=== PATIENT | female | born 1930 | race Caucasian/White ===

== ENCOUNTER 2017-06-02 05:03 | Inpatient (IN) ==
--- NOTE | 2017-06-02 05:31 | Emergency Department Note ---
Disposition Clinical Impression: Abdominal pain Qualifiers: Abdominal location: right upper quadrant Qualified Code(s): R10.11 - Right upper quadrant pain Disposition: Still a Patient Condition: Undetermined General Adult HPI - General Chief complaint: ED Shortness of Breath/Dyspnea Stated complaint: EMILIANO/weakness Time Seen by Provider: 06/02/17 05:22 Source: patient Mode of arrival: ambulatory Limitations: no limitations Nursing Notes Reviewed: Yes Vital Signs Reviewed: Yes - History of Present Illness HPI Narrative: 86-year-old female with a history of A. fib, AICD presents emergency department for 4 days of right upper quadrant pain. History obtained from daughter: She states patient has been complaining of right upper quadrant pain for the last 4 days. She has not noticed any fever, chills, shortness of breath, dyspnea patient has not complained of chest pain. There has been no vomiting or diarrhea. Daughter states patient has to come to the emergency department for the right upper quadrant pain. She is typically walking around the house without any difficulty, independent. Daughter states over last 2 days patient has noted to become weaker and weaker. The daughter states the patient is exactly how she has a home with the exception of she is weaker and she has the pain shooting across her abdomen. Difficult to interview patient. She answers with one word questions. I asked her what her to the emergency room tonight to daughter daughter and asked her why she had brought her. Patient does state that her right upper quadrant has hurt for about a week, and that she just "feels weak". She denies difficulty breathing, shortness of breath. During the interview patient clenched and pain is stated the pain had went across her abdomen rigidity A side towards the middle as patient to describe the pain if it was sharp, dull, etc. patient stated she would not necessarily call was sharp but she was unable to describe what it felt like. He appears to be intermittent. Patient is on Coumadin. Last INR check was on 05/31 result 2.4 Onset (ago): day(s) Location: abdomen Radiation: non-radiation Pain Scale: 0 Improves with: nothing Worsens with: nothing - Related Data Home Medications Medication Instructions Recorded Confirmed Furosemide [Lasix] 20 mg PO DAILY 01/28/17 01/28/17 Metoprolol [Lopressor] 25 mg PO BID 01/28/17 01/28/17 Potassium Chloride [Klor-Con 10] 10 meq PO DAILY 01/28/17 01/28/17 Warfarin [Coumadin] 2 mg PO HS 01/28/17 01/28/17 Allergies Allergy/AdvReac Type Severity Reaction Status Date / Time Sulfa (Sulfonamide Allergy Verified 10/26/14 23:21 Antibiotics) Review of Systems: Review of systems obtained culmination of patient and daughter. All systems ED: reviewed and negative except as stated. Review of Systems: As Per HPI Constitutional: Reports: weakness. Denies: fever, chills, weight change, night sweats ENT ED: Denies: throat pain, hearing loss, epistaxis, congestion, dysphagia Cardiovascular: Denies: chest pain, palpitations, dyspnea on exertion, edema, syncope Respiratory: Reports: as per HPI, cough (Nonpersistent and dry). Denies: dyspnea, wheezes Gastrointestinal: Reports: as per HPI, abdominal pain. Denies: nausea, vomiting , diarrhea, constipation, hematemesis, melena, hematochezia Genitourinary: Reports: as per HPI. Denies: urgency, dysuria, frequency, hematuria, discharge Musculoskeletal: Denies: back pain, neck pain Neurological: Denies: weakness, numbness, paresthesias Hematological/Lymphatic: Reports: easy bleeding, easy bruising, other (Due to Coumadin use) Past Medical History - Past Medical History Attestation: Yes The following information was validated with the patient. Source: old records reviewed, obtained from family Medical history: Reports: arthritis, atrial fibrillation Surgical history: Reports: appendectomy, cholecystectomy, hysterectomy - Social History Smoking Status: Never smoker Smokeless Tobacco Status: No Alcohol use: Reports: none Drug use: Reports: unknown Physical Exam - General Limitations: no limitations General appearance: alert - Head Head exam: atraumatic, normocephalic, normal inspection - Eye Eye exam: Present: conjunctival injection - ENT ENT exam: mucous membranes dry - Neck Neck exam: Present: normal inspection, full ROM, trachea midline - Chest Chest inspection: Present: normal inspection, symmetric chest wall rise - Respiratory Respiratory exam: Present: normal lung sounds bilaterally, prolonged expiratory phase - Cardiovascular Cardiovascular exam: Present: regular rate, normal rhythm, normal heart sounds - Abdominal Exam Abdominal exam: Present: soft, tenderness, guarding, normal bowel sounds. Absent: Non-Tender, distention, rebound, rigidity Abdominal tenderness: Present: RUQ, severe - Neurological Exam Neurological exam: Present: alert - Skin Skin exam: Present: warm, dry, intact, normal color Course Course Narrative: 86-year-old female with a history of A. fib, AICD, ovarian cancer, cholecystectomy, appendectomy presents emergency department for 4 days of right upper quadrant pain. History obtained from daughter: She states patient has been complaining of right upper quadrant pain for the last 4 days. She has not noticed any fever, chills, shortness of breath, dyspnea patient has not complained of chest pain. There has been no vomiting or diarrhea. Daughter states patient has to come to the emergency department for the right upper quadrant pain. She is typically walking around the house without any difficulty, independent. Daughter states over last 2 days patient has noted to become weaker and weaker. The daughter states the patient is exactly how she has a home with the exception of she is weaker and she has the pain shooting across her abdomen. Difficult to interview patient. She answers with one word questions. I asked her what her to the emergency room tonight to daughter daughter and asked her why she had brought her. Patient does state that her right upper quadrant has hurt for about a week, and that she just "feels weak". She denies difficulty breathing, shortness of breath. During the interview patient clenched and pain is stated the pain had went across her abdomen rigidity A side towards the middle as patient to describe the pain if it was sharp, dull, etc. patient stated she would not necessarily call was sharp but she was unable to describe what it felt like. He appears to be intermittent. Patient is on Coumadin. Last INR check was on 05/31 result 2.4; Well-nourished, dry, female. Her skin looks sallow with almost a light jaundiced appearance. Her sclera is injected, glassy, mucous membranes are dry. Patient noted with tachypnea respirations parceling 25-28 a minute. Patient is alert and oriented 3, though it appears that time she is unable to follow the conversation and can only answer direct questions such as name and birthday, where our usual, questions like that, but she is not able to answer descriptives questions, she is not able to answer why she came to the emergency room tonight, she is unable to explain her thought process. Respirations are quicken shallow lungs are clear; heart rate irregular with a controlled rate; abdomen is round and protuberant, bowel sounds times all 4 quadrants, exquisite tenderness to right upper quadrant below the ribs. Patient is guarding and unable to tolerate full assessment for liver border; last bowel movement was yesterday and normal per patient (daughter unable to say if the bowel movement was formed but she did say patient had a bowel movement yesterday and that she has not been going extra or less than normal) After examination alert to daughter for clarification. Daughter states patient is at her baseline mentally, she is at her baseline with the roundness of her abdomen, color of her skin. Patient states that she does not see anything different than what her mother is typically like other than she is more weak and has the right upper quadrant pain. We will perform a cardiac workup as well as an abdominal workup. Concern at this time is for GI bleeding due to the Coumadin use, acute liver disease, pancreatitis, Vital Signs Temperature 99.8 F H 06/02/17 05:06 Pulse Rate 89 06/02/17 05:06 Respiratory Rate 22 06/02/17 05:06 Blood Pressure 146/55 06/02/17 05:06 O2 Sat by Pulse Oximetry 88 06/02/17 05:06 Temperature 99.8 F H 06/02/17 05:06 Pulse Rate 89 06/02/17 05:06 Respiratory Rate 22 06/02/17 05:06 Blood Pressure 146/55 06/02/17 05:06 O2 Sat by Pulse Oximetry 88 06/02/17 05:06 Oxygen Delivery Oxygen Delivery Room Air S.B.A.R. - S.B.A.R. Situation: Demographics, MOA Background: Presenting Complaint, Relevant PMH, Meds, & Allergies Assessment: Vital Signs, Course and respsone to treatment, Exam Concerns, Patient/Family Expectation, Pertinant Lab Results, Outstanding Labs Recommendation: Barrier(s) to disposition, Recommendation based on pending studies, treatments, or consults S.B.A.R. Report Given to: Gurinder Mcfadden CNP S.B.A.RShukri Repor Time: 06:10
[2017-06-02] MEDS ORDERED: 0.9 % Sodium Chloride 500 ML IVC ONE (05:45)
[2017-06-02] MEDS ORDERED: Ondansetron ODT 4 MG TAB.RAPDIS SL ONE (05:54)
[2017-06-02 06:05] LABS: Basophils # 0.1 K/mcL (0.0-0.2); Basophils % 0.4 %; Eosinophils # 0.1 K/mcL (0.0-0.6); Eosinophils % 0.5 %; Hematocrit 37.1 % (35.3-44.9); Hemoglobin 11.9 g/dL (11.5-15.4); Immature Granulocytes % 0.5 % (0-4); Mean Corpuscular HGB Conc 32.1 g/dL (31.6-35.5); Mean Corpuscular Hemoglobin 31.6 pg (28.0-33.3); Mean Corpuscular Volume 98.7 fL (83.0-100.0); Mean Platelet Volume 9.6 fL (9.4-12.4); Monocytes # 1.2 K/mcL (0.0-1.3); Monocytes % 8.5 %; Neutrophils # 11.1 K/mcL (1.6-8.9); Platelet Count 300 K/mcL (140-400); Red Blood Count 3.76 M/mcL (3.82-4.97); Red Cell Distribution Width 12.7 % (11.5-14.5); Segmented Neutrophils % 76.1 %
[2017-06-02 06:11] LABS: INR 2.6; Prothrombin Time 28.8 Seconds (9.4-12.1)
[2017-06-02 06:13] LABS: Activated Partial Thrombo Time 40.2 Seconds (26.0-36.0)
[2017-06-02 06:25] LABS: Alanine Aminotransferase 16 Units/L (7-52); Albumin 3.6 g/dL (3.5-5.7); Albumin/Globulin Ratio 0.9 (1.1-2.2); Alkaline Phosphatase 89 Units/L (34-104); Aspartate Amino Transferase 32 Units/L (13-39); BUN/Creatinine Ratio 25 (6-26); Bilirubin,Direct 0.4 mg/dL (0.0-0.2); Bilirubin,Indirect 0.7 mg/dL (0.0-1.2); Bilirubin,Total 1.1 mg/dL (0.3-1.0); Blood Urea Nitrogen 19 mg/dL (8-23); Calcium 9.7 mg/dL (8.6-10.3); Carbon Dioxide 26 mEq/L (23-29); Chloride 97 mEq/L (98-107); Globulin 3.8 g/dL (2.4-3.5); Glucose 146 mg/dL (70-105); Lipase 11 Units/L (11-82); Osmolality,Calculated 281 (280-300); Potassium 5.1 mEq/L (3.5-5.1); Sodium 133 mEq/L (136-145); Total Protein 7.4 g/dL (6.4-8.9); eGFR For African Americans > 60 (> 60); eGFR For Non-African Americans > 60 (> 60)
[2017-06-02 06:39] LABS: Bilirubin,Urine Small (Negative); Blood,Urine Moderate (Negative); Clarity,Urine Cloudy (Clear); Color,Urine Dark Yellow (Yellow); Glucose,Urine (UA) Normal (Normal); Ketones,Urine Trace mg/dL (Negative); Leukocyte Esterase,Urine Moderate (Negative); Nitrite,Urine Positive (Negative); Protein,Urine 30 mg/dL (Neg-Trace); Specific Gravity,Urine 1.024 (1.010-1.025)
[2017-06-02 06:44] LABS: Bacteria,Urine Many per hpf (None-Few); Squamous Epithelial Cell,Urine Many per lpf (None-Few); WBC,Urine TNTC per hpf (0-3)
[2017-06-02 06:50] LABS: Troponin I < 0.03 ng/mL (< 0.04)
[2017-06-02 06:57] LABS: Hyaline Casts,Urine Few per lpf (None-Few)
[2017-06-02] MEDS ORDERED: cefTRIAXone 2,000 MG in Water for inj. (sterile) 20 ML 20 ML IVP ONE (07:07)
--- NOTE | 2017-06-02 07:24 | Emergency Department Note ---
Disposition Clinical Impression: Abdominal pain Qualifiers: Abdominal location: right upper quadrant Qualified Code(s): R10.11 - Right upper quadrant pain UTI (urinary tract infection) Qualifiers: Urinary tract infection type: site unspecified Hematuria presence: without hematuria Qualified Code(s): N39.0 - Urinary tract infection, site not specified Disposition: Admitted As Inpatient Condition: Fair General Adult HPI - General Chief complaint: ED Shortness of Breath/Dyspnea Stated complaint: EMILIANO/weakness Time Seen by Provider: 06/02/17 05:22 Source: patient Mode of arrival: ambulatory Limitations: no limitations - History of Present Illness Location: abdomen Pain Scale: 0 Improves with: nothing Worsens with: nothing - Related Data Home Medications Medication Instructions Recorded Confirmed Furosemide [Lasix] 20 mg PO DAILY 01/28/17 06/02/17 Metoprolol [Lopressor] 25 mg PO BID 01/28/17 06/02/17 Potassium Chloride [Klor-Con 10] 10 meq PO DAILY 01/28/17 06/02/17 Warfarin [Coumadin] 2 mg PO MOFR 01/28/17 06/02/17 Warfarin [Coumadin] 3 mg PO SUTUWETHSA 06/02/17 06/02/17 Allergies Allergy/AdvReac Type Severity Reaction Status Date / Time Sulfa (Sulfonamide Allergy Verified 10/26/14 23:21 Antibiotics) Constitutional: Reports: weakness. Denies: fever, chills, weight change, night sweats ENT ED: Denies: throat pain, hearing loss, epistaxis, congestion, dysphagia Cardiovascular: Denies: chest pain, palpitations, dyspnea on exertion, edema, syncope Respiratory: Reports: as per HPI, cough (Nonpersistent and dry). Denies: dyspnea, wheezes Gastrointestinal: Reports: as per HPI, abdominal pain. Denies: nausea, vomiting , diarrhea, constipation, hematemesis, melena, hematochezia Genitourinary: Reports: as per HPI. Denies: urgency, dysuria, frequency, hematuria, discharge Musculoskeletal: Denies: back pain, neck pain Neurological: Denies: weakness, numbness, paresthesias Hematological/Lymphatic: Reports: easy bleeding, easy bruising, other (Due to Coumadin use) Past Medical History - Past Medical History Medical history: Reports: arthritis, atrial fibrillation Surgical history: Reports: appendectomy, cholecystectomy, hysterectomy - Social History Smoking Status: Never smoker Smokeless Tobacco Status: No Alcohol use: Reports: none Drug use: Reports: unknown Physical Exam - General Limitations: no limitations General appearance: alert Course Vital Signs Temperature 99.8 F H 06/02/17 05:06 Pulse Rate 89 06/02/17 05:06 Respiratory Rate 22 06/02/17 05:06 Blood Pressure 146/55 06/02/17 05:06 O2 Sat by Pulse Oximetry 88 06/02/17 05:06 Temperature 99.0 F 06/02/17 11:12 Pulse Rate 84 06/02/17 11:12 Respiratory Rate 18 06/02/17 11:12 Blood Pressure 118/55 06/02/17 11:12 O2 Sat by Pulse Oximetry 94 06/02/17 11:12 Oxygen Delivery Oxygen Delivery Nasal Cannula Medical Decision Making - MDM Narrative Medical decision making narrative: 86 year old female with history of AF, pacemaker, ovary cancer presents with abdominal pain and generalized weakness for 4 days. pt is on coumadin, reported dark stool and incontinency of urinating recently. please see the [facility] ([facility] ) detailed H&P. Physical exam: temperature 99.8, RUQ tender to palpation. CBC: white cell 14.6, UA: nitrite positive, Leukocyte positive. lactic acid negative , troponin negative. abdomen CT: 1. Extensive omental caking along the right side of the abdomen with prominent lymph nodes or peritoneal nodules in the right lower quadrant and mild ascites. Given the history of ovarian cancer, findings are consistent with peritoneal carcinomatosis. 2. In the posterior right kidney, there is a 1.9 x 1.7 cm indeterminate lesion which could represent a complicated cyst or enhancing mass. Suggest nonemergent renal CT or MRI for further evaluation. 3. Colonic diverticulosis without evidence for acute diverticulitis. Rectal exam: dark brown stool, guiac test negative. Will admit pt for further evaluation for abdominal pain and weakness, one dose of Rocephine given in ER for UTI 07:55 am, spoke with hospitalist, pt is accepted for admission - Lab Data Result diagrams: 06/02/17 05:43 06/02/17 05:43 Lab Results 06/02/17 06/02/17 06/02/17 Range/Units 05:43 05:43 05:43 WBC 14.6 H (4.3-11.1) K/mcL RBC 3.76 L (3.82-4.97) M/mcL Hgb 11.9 (11.5-15.4) g/dL Hct 37.1 (35.3-44.9) % MCV 98.7 (83.0-100.0) fL MCH 31.6 (28.0-33.3) pg MCHC 32.1 (31.6-35.5) g/dL RDW 12.7 (11.5-14.5) % Plt Count 300 (140-400) K/mcL MPV 9.6 (9.4-12.4) fL Immature Gran % 0.5 (0-4) % Seg Neutrophils % 76.1 % Lymphocytes % 14.0 % Monocytes % 8.5 % Eosinophils % 0.5 % Basophils % 0.4 % Neutrophils # 11.1 H (1.6-8.9) K/mcL Lymphocytes # 2.0 (0.6-4.6) K/mcL Monocytes # 1.2 (0.0-1.3) K/mcL Eosinophils # 0.1 (0.0-0.6) K/mcL Basophils # 0.1 (0.0-0.2) K/mcL PT (9.4-12.1) Seconds INR APTT (26.0-36.0) Seconds Sodium 133 L (136-145) mEq/L Potassium 5.1 (3.5-5.1) mEq/L Chloride 97 L (98-107) mEq/L Carbon Dioxide 26 (23-29) mEq/L BUN 19 (8-23) mg/dL Creatinine 0.75 (0.60-1.20) mg/dL Est GFR ( Amer) > 60 (> 60) Est GFR (Non-Af Amer) > 60 (> 60) BUN/Creatinine Ratio 25 (6-26) Glucose 146 H (70-105) mg/dL Calculated Osmolality 281 (280-300) Lactic Acid (0.5-2.2) mmol/L Calcium 9.7 (8.6-10.3) mg/dL Total Bilirubin 1.1 H (0.3-1.0) mg/dL Direct Bilirubin 0.4 H (0.0-0.2) mg/dL Indirect Bilirubin 0.7 (0.0-1.2) mg/dL AST 32 (13-39) Units/L ALT 16 (7-52) Units/L Alkaline Phosphatase 89 (34-104) Units/L Troponin I < 0.03 (< 0.04) ng/mL B-Natriuretic Peptide 316 H (Less than 100) pg/mL Serum Total Protein 7.4 (6.4-8.9) g/dL Albumin 3.6 (3.5-5.7) g/dL Globulin 3.8 H (2.4-3.5) g/dL Albumin/Globulin Ratio 0.9 L (1.1-2.2) Lipase 11 (11-82) Units/L Urine Color (Yellow) Urine Clarity (Clear) Urine pH (5.0-8.0) pH Units Ur Specific Stow (1.010-1.025) Urine Protein (Neg-Trace) mg/dL Urine Glucose (UA) (Normal) mg/dL Urine Ketones (Negative) mg/dL Urine Blood (Negative) Urine Nitrite (Negative) Urine Bilirubin (Negative) Urine Urobilinogen (Normal) mg/dL Ur Leukocyte Esterase (Negative) Urine Microscopic RBC (0-3) per hpf Urine Microscopic WBC (0-3) per hpf Ur Squamous Epith Cells (None-Few) per lpf Urine Bacteria (None-Few) per hpf Hyaline Casts (None-Few) per lpf Ur Culture Indicated? (NO) 06/02/17 06/02/17 06/02/17 Range/Units 05:43 06:05 06:27 WBC (4.3-11.1) K/mcL RBC (3.82-4.97) M/mcL Hgb (11.5-15.4) g/dL Hct (35.3-44.9) % MCV (83.0-100.0) fL MCH (28.0-33.3) pg MCHC (31.6-35.5) g/dL RDW (11.5-14.5) % Plt Count (140-400) K/mcL MPV (9.4-12.4) fL Immature Gran % (0-4) % Seg Neutrophils % % Lymphocytes % % Monocytes % % Eosinophils % % Basophils % % Neutrophils # (1.6-8.9) K/mcL Lymphocytes # (0.6-4.6) K/mcL Monocytes # (0.0-1.3) K/mcL Eosinophils # (0.0-0.6) K/mcL Basophils # (0.0-0.2) K/mcL PT 28.8 H (9.4-12.1) Seconds INR 2.6 APTT 40.2 H (26.0-36.0) Seconds Sodium (136-145) mEq/L Potassium (3.5-5.1) mEq/L Chloride (98-107) mEq/L Carbon Dioxide (23-29) mEq/L BUN (8-23) mg/dL Creatinine (0.60-1.20) mg/dL Est GFR ( Amer) (> 60) Est GFR (Non-Af Amer) (> 60) BUN/Creatinine Ratio (6-26) Glucose (70-105) mg/dL Calculated Osmolality (280-300) Lactic Acid 1.4 (0.5-2.2) mmol/L Calcium (8.6-10.3) mg/dL Total Bilirubin (0.3-1.0) mg/dL Direct Bilirubin (0.0-0.2) mg/dL Indirect Bilirubin (0.0-1.2) mg/dL AST (13-39) Units/L ALT (7-52) Units/L Alkaline Phosphatase (34-104) Units/L Troponin I (< 0.04) ng/mL B-Natriuretic Peptide (Less than 100) pg/mL Serum Total Protein (6.4-8.9) g/dL Albumin (3.5-5.7) g/dL Globulin (2.4-3.5) g/dL Albumin/Globulin Ratio (1.1-2.2) Lipase (11-82) Units/L Urine Color Dark Yellow (Yellow) Urine Clarity Cloudy A (Clear) Urine pH 6.0 (5.0-8.0) pH Units Ur Specific Stow 1.024 (1.010-1.025) Urine Protein 30 H (Neg-Trace) mg/dL Urine Glucose (UA) Normal (Normal) mg/dL Urine Ketones Trace H (Negative) mg/dL Urine Blood Moderate H (Negative) Urine Nitrite Positive A (Negative) Urine Bilirubin Small H (Negative) Urine Urobilinogen 2.0 H (Normal) mg/dL Ur Leukocyte Esterase Moderate H (Negative) Urine Microscopic RBC 5-15 H (0-3) per hpf Urine Microscopic WBC TNTC H (0-3) per hpf Ur Squamous Epith Cells Many H (None-Few) per lpf Urine Bacteria Many H (None-Few) per hpf Hyaline Casts Few (None-Few) per lpf Ur Culture Indicated? NO. (NO) 06/02/17 Range/Units 08:22 WBC (4.3-11.1) K/mcL RBC (3.82-4.97) M/mcL Hgb (11.5-15.4) g/dL Hct (35.3-44.9) % MCV (83.0-100.0) fL MCH (28.0-33.3) pg MCHC (31.6-35.5) g/dL RDW (11.5-14.5) % Plt Count (140-400) K/mcL MPV (9.4-12.4) fL Immature Gran % (0-4) % Seg Neutrophils % % Lymphocytes % % Monocytes % % Eosinophils % % Basophils % % Neutrophils # (1.6-8.9) K/mcL Lymphocytes # (0.6-4.6) K/mcL Monocytes # (0.0-1.3) K/mcL Eosinophils # (0.0-0.6) K/mcL Basophils # (0.0-0.2) K/mcL PT (9.4-12.1) Seconds INR APTT (26.0-36.0) Seconds Sodium (136-145) mEq/L Potassium (3.5-5.1) mEq/L Chloride (98-107) mEq/L Carbon Dioxide (23-29) mEq/L BUN (8-23) mg/dL Creatinine (0.60-1.20) mg/dL Est GFR ( Amer) (> 60) Est GFR (Non-Af Amer) (> 60) BUN/Creatinine Ratio (6-26) Glucose (70-105) mg/dL Calculated Osmolality (280-300) Lactic Acid 1.0 (0.5-2.2) mmol/L Calcium (8.6-10.3) mg/dL Total Bilirubin (0.3-1.0) mg/dL Direct Bilirubin (0.0-0.2) mg/dL Indirect Bilirubin (0.0-1.2) mg/dL AST (13-39) Units/L ALT (7-52) Units/L Alkaline Phosphatase (34-104) Units/L Troponin I (< 0.04) ng/mL B-Natriuretic Peptide (Less than 100) pg/mL Serum Total Protein (6.4-8.9) g/dL Albumin (3.5-5.7) g/dL Globulin (2.4-3.5) g/dL Albumin/Globulin Ratio (1.1-2.2) Lipase (11-82) Units/L Urine Color (Yellow) Urine Clarity (Clear) Urine pH (5.0-8.0) pH Units Ur Specific Stow (1.010-1.025) Urine Protein (Neg-Trace) mg/dL Urine Glucose (UA) (Normal) mg/dL Urine Ketones (Negative) mg/dL Urine Blood (Negative) Urine Nitrite (Negative) Urine Bilirubin (Negative) Urine Urobilinogen (Normal) mg/dL Ur Leukocyte Esterase (Negative) Urine Microscopic RBC (0-3) per hpf Urine Microscopic WBC (0-3) per hpf Ur Squamous Epith Cells (None-Few) per lpf Urine Bacteria (None-Few) per hpf Hyaline Casts (None-Few) per lpf Ur Culture Indicated? (NO)
[2017-06-02] MEDS ORDERED: *HR* HYDROcodone/Acet 5/325 mg TABLET PO PRN (08:02)
[2017-06-02] MEDS ORDERED: Naloxone 0.4 MG/ML INJ IVP PRN (08:02)
[2017-06-02] MEDS ORDERED: traMADol 50 MG TABLET PO PRN (08:02)
[2017-06-02] MEDS ORDERED: *HR* FentaNYL (PF) 100 MCG/2 ML VIAL IVP PRN (08:12)
[2017-06-02] MEDS: D5% in 0.45% NACL 1,000 ML IVC SCH ×2 (10:12→22:43)
--- NOTE | 2017-06-02 12:16 | Internal Med History&Physical ---
Date of Encounter: 06/02/17 Time of Encounter: 09:30 Assessment and Plan (1) Abdominal pain Current visit: Yes Status: Acute Admit the pt into Med Surg Reviewed her CT of Abd - does have peritoneal carcinomatosis moslty metastatic disease from ovarian cancer consulted Heme Onc for further eval U/S abd ordered continue symptomatic and supportive care IV analgesics PRN Talk to the patient's daughter and explain to her about the current care Qualifiers: Abdominal location: right upper quadrant Qualified Code(s): R10.11 - Right upper quadrant pain (2) Peritoneal carcinomatosis Current visit: Yes Status: Acute Reviewed her CT of abd Heme Onc consulted If Heme Onc suggest any surgical interventions will consult surgery (3) UTI (urinary tract infection) Current visit: Yes Status: Acute UA - abnormal started on empirical abx Rocephin Qualifiers: Urinary tract infection type: site unspecified Hematuria presence: without hematuria Qualified Code(s): N39.0 - Urinary tract infection, site not specified (4) Paroxysmal A-fib Current visit: Yes Status: Acute Rate controlled on Metoprolol on Coumadin for anti coag (5) HTN (hypertension) Current visit: Yes Status: Acute stable with current meds Qualifiers: Hypertension type: essential hypertension Qualified Code(s): I10 - Essential (primary) hypertension (6) Ovarian cancer Current visit: Yes Status: Acute [facility] Qualifiers: Laterality: unspecified laterality Qualified Code(s): C56.9 - Malignant neoplasm of unspecified ovary Internal Medicine - H&P: HPI Chief complaint: Abdominal pain Admitted From: Emergency Dept Plans for Post Hospital Care: Home History of present illness: Ms. Villalta is a 86 year old female with known Paroxysmal A fib, on Coumadin for anti coag, Dementia, HTN, s/p pacemaker, recently diagnosed overaian cancer with s/p opherectomy and follows with Hem[facility] Onc from [facility] now she was brought into ER by family / daughter c/o pt did c/o RUQ abdominal pain since this morning. Denied any nausea / vomiting. As per daughter pt does have some loss of appetite from last 4-5 days and not eating and drinking well. pt is alert, awake and O x 3, looks demented . Pt denied any CP / SOB. Past Med Surg Social Fam HX - Past Medical History Medical history: arthritis, atrial fibrillation - Past Surgical History Surgical History: appendectomy, cholecystectomy, hysterectomy - Social History Smoking Status: Never smoker Smokeless Tobacco Status: No Alcohol use: none Drug use: unknown - Additional Family History Additional family history: Family hsitory reviewed and non contribuitory to current problem. Internal Medicine - H&P: Meds Furosemide [Lasix] 20 mg PO DAILY 01/28/17 [History] Metoprolol [Lopressor] 25 mg PO BID 01/28/17 [History] Potassium Chloride [Klor-Con 10] 10 meq PO DAILY 01/28/17 [History] Warfarin [Coumadin] 2 mg PO MOFR 01/28/17 [History] Warfarin [Coumadin] 3 mg PO SUTUWETHSA 06/02/17 [History] 3 Allergy/AdvReac Type Severity Reaction Status Date / Time Sulfa (Sulfonamide Allergy Verified 10/26/14 23:21 Antibiotics) All Systems PM: A 10-system review of systems was performed and is negative for pertinent findings except as documented above in the HPI. Review of systems: All the systems are reviewed everything is benign except the systems and symptoms I mentioned in the history of present illness - Constitutional Vitals: Temp Pulse Resp BP Pulse Ox 99.0 F 84 18 118/55 94 06/02/17 11:12 06/02/17 11:12 06/02/17 11:12 06/02/17 11:12 06/02/17 11:12 General appearance: Present: A&O X 3, answers questions appropriately Exam: Looks weak and lethargic - Head Head exam: Present: atraumatic, normal inspection - Neck Neck exam general surgery: Present: supple - Respiratory Respiratory exam: Present: decreased breath sounds. Absent: rales, respiratory distress, rhonchi, wheezes - Cardiovascular Cardiovascular exam: Present: RRR, +S1, +S2. Absent: tachycardia - GI/Abdominal GI/Abdominal exam: Present: distended (mild), normal bowel sounds, soft, tenderness (mild discomfort..). Absent: guarding, rebound, rigid Additional comments: Pena's sign negative - Extremities Exam Extremities exam: Absent: calf tenderness, pedal edema, tenderness - Back Exam Back exam: Absent: CVA tenderness (L), CVA tenderness (R) - Neurological Exam Neurological exam: Present: alert, oriented X3, no focal deficits Additional comments: Demented.. - Psychiatric Psychiatric exam: Present: depressed - Skin Skin exam: Absent: rash Internal Med - H&P Results - Labs CBC & Chem 7: 06/02/17 05:43 06/02/17 05:43
--- NOTE | 2017-06-02 14:08 | Oncology Inp Consult Note ---
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 Chart review of [facility] notes and recent lab work does show elevated tumor marker with CA125 at 75 and CA 19-9 at 14. Radiographic findings as detailed above were discussed with patient and patients family in detail at bedside. Further discussion with patient and patients daughter led to the final decision that patient would like to discuss further workup or potential biopsy along with discussion for further treatment options with Dr. Browning at [facility]. She does not wish to purse biopsy at this facility. Patients family have already been in contact with Dr. Browning's office and have arranged for an appointment on Wednesday pending her discharge. Discussed with hospitalist team, if pain control remains an issue may need to consider transfer to [facility] vs. discharge home and f/u with Dr. Brwoning as planned on Wednesday. Should she desire to have any oncologic follow up closer to home we would be happy to help arrange in future, otherwise patient and patients family wish to continue to follow up at [facility]. I did ask nursing staff to arrange for an imaging disc to be made to send with patient/patients family for review at [facility]. Please refer to Dr. Maria's attestation below for further details. Qualifiers: Laterality: unspecified laterality Qualified Code(s): C56.9 - Malignant neoplasm of unspecified ovary - Data of Consult Patient: new to practice Consult date: 06/02/17 Requesting Physician: Jose Braun MD Primary Care Provider: Richard Mariscal - Consult Narrative Reason for consult: H/O mucinous adenocarcinoma, favor ovarian primary (grade 3) History of present illness: Ms. Villalta is a 86 year old female with oncologic history significant for mucinous adenocarcinoma, favor ovarian primary (grade 3). She is status post laparoscopic cholecystectomy and excision of pelvic mass on 03/14/2016 at an outside facility in [place]. The operative report had stated that there is a large amount of ascites present which was suspicious and sent for cytology. Operative report notes did not make note of any additional intra-abdominal lesions noted. Patient does have a remote history of a hysterectomy and appendectomy. 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 She had detailed discussion with Dr. Keily Law at [facility] at [facility] following her surgery regarding options for management and ultimately decided on close monitoring with tumor markers and imaging studies. She did not receive chemotherapy. She follows up with Dr. Keily Law every 3 months. Her most recent imaging in December at [facility] had shown no evidence of metastatic disease or lymphadenopathy within the abdomen or pelvis and stable appearance of a cystic structure raising from the posterior aspect of the right superior renal pole which is indeterminate however could represent proteinaceous or hemorrhagic cyst. 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 She presented to the ER with right-sided abdominal pain with onset of 4 days prior, weakness and new onset intermittent incontinence with urinary frequency. She reports having very little oral intake over the past few days. She was found to have a UTI and started on Rocephin. CXR negative for acute disease. CT abdomen/pelvis with contrast revealed extensive omental caking along the right side of the abdomen with prominent lymph nodes or peritoneal nodules in the right lower quadrant and mild ascites, in the posterior right kidney, there is a 1.9 x 1.7 cm indeterminate lesion which could represent a complicated cyst or enhancing mass (suggest nonemergent renal CT or MRI for further evaluation), colonic diverticulosis without evidence for acute diverticulitis. She was admitted with the above findings and for further pain control. Past Med Surg Social Fam HX - Past Medical History Medical history: arthritis, atrial fibrillation - Past Surgical History Surgical History: appendectomy, cholecystectomy, hysterectomy - Social History Smoking Status: Never smoker Smokeless Tobacco Status: No Alcohol use: none Drug use: unknown Medications and Allergies Furosemide [Lasix] 20 mg PO DAILY 01/28/17 [History] Metoprolol [Lopressor] 25 mg PO BID 01/28/17 [History] Potassium Chloride [Klor-Con 10] 10 meq PO DAILY 01/28/17 [History] Warfarin [Coumadin] 2 mg PO MOFR 01/28/17 [History] Warfarin [Coumadin] 3 mg PO SUTUWETHSA 06/02/17 [History] 3 Allergy/AdvReac Type Severity Reaction Status Date / Time Sulfa (Sulfonamide Allergy Verified 10/26/14 23:21 Antibiotics) Constitutional: Present: anorexia, chills, fever(s), weakness. Absent: frequent falls Eyes: Absent: change in vision Nose, mouth and throat: Absent: mouth lesions Cardiovascular: Absent: chest pain, irregular heart rhythm, palpitations Respiratory: Absent: cough, dyspnea Gastrointestinal: Present: abdominal pain. Absent: dysphagia, hematemesis, hematochezia, melena, nausea, vomiting Genitourinary: Present: as per HPI, dysuria, urinary frequency, urinary incontinence, other (per HPI) Musculoskeletal: Present: muscle weakness Integumentary: Present: as per HPI Neurological: Absent: focal weakness, frequent falls, numbness, tingling Hematologic/Lymphatic: Present: as per HPI Oncology - Exam - Constitutional Vitals: Temp Pulse Resp BP Pulse Ox 99.0 F 84 18 118/55 94 06/02/17 11:12 06/02/17 11:12 06/02/17 11:12 06/02/17 11:12 06/02/17 11:12 General appearance: cooperative, no acute distress, no febrile - Head Head exam: Present: atraumatic - Respiratory Respiratory exam: Present: CTAB. Absent: respiratory distress - Cardiovascular Cardiovascular exam: Present: RRR, +S1, +S2 - GI/Abdominal GI/Abdominal exam: Present: normal bowel sounds, soft, tenderness - Extremities Exam Extremities exam: Present: normal inspection. Absent: calf tenderness - Neurological Exam Neurological exam: Present: alert, oriented X3, no focal deficits, strengths equal and symetr throughout - Psychiatric Psychiatric exam: Present: normal affect, normal mood - Skin Skin exam: Present: normal color, warm Consult Discharge Plan - Plan Referrals: Richard Mariscal DO [Primary Care Provider] - <Phuc Maria - Last Filed: 06/03/17 08:22> Date of Encounter: 06/02/17 - Data of Consult Requesting Physician: Jose Braun MD Primary Care Provider: Richard Mariscal - Consult Narrative History of present illness: Ms. Villalta is a 86 year old female Oncology - Exam - Constitutional Vitals: Temp Pulse Resp BP Pulse Ox 98.2 F 86 16 145/71 90 06/03/17 07:26 06/03/17 07:26 06/03/17 07:26 06/03/17 07:26 06/03/17 07:26 Oncology - Results Labs: Short CBC 06/03/17 Range/Units 05:09 WBC 8.6 (4.3-11.1) K/mcL Hgb 10.0 L D (11.5-15.4) g/dL Hct 32.4 L (35.3-44.9) % Plt Count 239 (140-400) K/mcL Neutrophils # 5.7 (1.6-8.9) K/mcL BMP 06/03/17 05:09 Sodium 132 L Potassium 4.5 Chloride 99 Carbon Dioxide 29 BUN 16 Creatinine 0.83 Glucose 115 H Calcium 8.9 Liver Function 06/03/17 Range/Units 05:09 Total Bilirubin 0.5 (0.3-1.0) mg/dL AST 18 (13-39) Units/L ALT 14 (7-52) Units/L Alkaline Phosphatase 74 (34-104) Units/L Albumin 2.9 L (3.5-5.7) g/dL - Attending Attestation Seen and examined patient and agree with assessment and plan. Patient with dementia. She had resection for mucinous adenocarcinoma of the R ovary in february 2016. She did not pursue medical oncology f/u. She had CT at [facility] in 12/2015 that was negative. now she appears to have recurrent disease. 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 She will need bx to confirm the recurrent neoplasm.
[2017-06-02] MEDS ORDERED: *HR* Warfarin 3 MG TABLET PO SCH (18:00)
[2017-06-02] MEDS ORDERED: Warfarin perPT PO PRN (18:00)
--- NOTE | 2017-06-02 20:21 | Electrocardiograph Report ---
[address] [place] [address] Test Date: 2017-06-02 Pat Name: Christelle Villalta Department: 102 Room: 3A52 Gender: F Tire Balancer: Nati : 1930 Requested By: Deep Floyd Order Number: [id number] Reading MD: Lamin Fuentes MD Measurements Intervals [place] Rate: 90 P: AL: 0 QRS: 9 QRSD: 88 T: -32 QT: 328 QTc: 376 Interpretive Statements ATRIAL FIBRILLATION ANTEROLATERAL ISCHEMIA Electronically Signed On 06-02-2017 20:19:43 EST by Lamin Fuentes MD
[2017-06-03 05:48] LABS: Basophils % 0.3 %; Eosinophils # 0.1 K/mcL (0.0-0.6); Eosinophils % 1.6 %; Hematocrit 32.4 % (35.3-44.9); Immature Granulocytes % 0.6 % (0-4); Lymphocytes # 1.8 K/mcL (0.6-4.6); Lymphocytes % 20.6 %; Mean Corpuscular HGB Conc 30.9 g/dL (31.6-35.5); Mean Corpuscular Hemoglobin 30.9 pg (28.0-33.3); Mean Platelet Volume 9.5 fL (9.4-12.4); Monocytes % 11.5 %; Neutrophils # 5.7 K/mcL (1.6-8.9); Platelet Count 239 K/mcL (140-400); Red Blood Count 3.24 M/mcL (3.82-4.97); Red Cell Distribution Width 12.8 % (11.5-14.5); Segmented Neutrophils % 65.4 %
[2017-06-03 05:57] LABS: Alanine Aminotransferase 14 Units/L (7-52); Albumin 2.9 g/dL (3.5-5.7); Albumin/Globulin Ratio 0.9 (1.1-2.2); Alkaline Phosphatase 74 Units/L (34-104); Aspartate Amino Transferase 18 Units/L (13-39); BUN/Creatinine Ratio 19 (6-26); Bilirubin,Total 0.5 mg/dL (0.3-1.0); Blood Urea Nitrogen 16 mg/dL (8-23); Calcium 8.9 mg/dL (8.6-10.3); Carbon Dioxide 29 mEq/L (23-29); Chloride 99 mEq/L (98-107); Globulin 3.2 g/dL (2.4-3.5); Glucose 115 mg/dL (70-105); Magnesium 1.9 mg/dL (1.6-2.6); Osmolality,Calculated 276 (280-300); Phosphorous 3.5 mg/dL (2.7-4.5); Potassium 4.5 mEq/L (3.5-5.1); Sodium 132 mEq/L (136-145); Total Protein 6.1 g/dL (6.4-8.9); eGFR For African Americans > 60 (> 60); eGFR For Non-African Americans > 60 (> 60)
[2017-06-03 06:05] LABS: INR 3.9; Prothrombin Time 43.1 Seconds (9.4-12.1)
[2017-06-03] MEDS ORDERED: cefTRIAXone 1,000 MG in Water for inj. (sterile) 20 ML 20 ML IVP SCH (09:00)
[2017-06-03 10:52] VITALS: BP 125/66
--- NOTE | 2017-06-03 11:55 | Discharge Summary ---
- NOTES TO OUTPATIENT PROVIDER Notes to Outpatient Provider: Discharged on Omnicef for suspected urinary tract infection. INR on discharge is 3.9, the patient and her daughter at the bedside educated to hold Coumadin for 2 days. Follow-up with own oncologist at [facility]. Orders not resulted at time of discharge: Pending orders 06/04/17 04:00 Prothrombin Time INR [COAG] Q24H 06/05/17 04:00 Prothrombin Time INR [COAG] Q24H 06/06/17 05:00 Prothrombin Time INR [COAG] Q24H 06/07/17 05:00 Prothrombin Time INR [COAG] Q24H Date of Encounter: 06/03/17 Time of Encounter: 11:54 - Discharge Diagnosis (1) HTN (hypertension) Priority: Secondary Status: Chronic Qualifiers: Hypertension type: essential hypertension Qualified Code(s): I10 - Essential (primary) hypertension (2) Ovarian cancer Priority: Secondary Status: Chronic Qualifiers: Laterality: unspecified laterality Qualified Code(s): C56.9 - Malignant neoplasm of unspecified ovary (3) Paroxysmal A-fib Priority: Secondary Status: Chronic (4) Peritoneal carcinomatosis Priority: Primary Status: Acute (5) UTI (urinary tract infection) Priority: Primary Status: Suspected Qualifiers: Urinary tract infection type: site unspecified Hematuria presence: without hematuria Qualified Code(s): N39.0 - Urinary tract infection, site not specified Hospital course: Ms. Villalta is a 86 year old female with oncologic history significant for mucinous adenocarcinoma, favor ovarian primary (grade 3). She is status post laparoscopic cholecystectomy and excision of pelvic mass on 03/14/2016 at an outside facility in [place]. The operative report had stated that there is a large amount of ascites present which was suspicious and sent for cytology. Operative report notes did not make note of any additional intra-abdominal lesions noted. Patient does have a remote history of a hysterectomy and appendectomy. 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 She had detailed discussion with Dr. Keily Law at [facility] [place] following her surgery regarding options for management and ultimately decided on close monitoring with tumor markers and imaging studies. She did not receive chemotherapy. She has a medical history of paroxysmal atrial fibrillation on anticoagulation with Coumadin. She presented to the emergency room with complaints of right-sided abdominal pain for days prior to presentation with intermittent urinary incontinence and frequency. She also reported poor oral intake. CT abdomen/pelvis with contrast revealed extensive omental caking along the right side of the abdomen with prominent lymph nodes or peritoneal nodules in the right lower quadrant and mild ascites, in the posterior right kidney, there is a 1.9 x 1.7 cm indeterminate lesion which could represent a complicated cyst or enhancing mass (suggest nonemergent renal CT or MRI for further evaluation), colonic diverticulosis without evidence for acute diverticulitis. She was admitted with the above findings and for further pain control. Started on empiric antibiotics for suspected urinary tract infection and oncology was consulted for suspected peritoneal carcinomatosis. The patient was seen and evaluated at the bedside with family despondent, and she denied any complaints and reports abdominal pain has resolved. She had requested to be discharged home because they have an appointment with the oncologist at the [facility] tomorrow Wednesday06/04/17. INR troponin was 3.9. Family was encouraged to hold Coumadin for 2 days. And follow-up Coumadin clinic. Urinalysis was abnormal and due to her symptoms of urinary frequency she was started on antibiotics for suspected urinary tract infection. He was discharged on 5 more days of Omnicef for uncomplicated urinary tract infection. Oncologist referred here recommended patient follow-up with her oncologist at the [facility]. Plan of care was discussed patient verbalizes understanding. Discharge discussed with: patient, family, nurse, social work, case management - Time Spent with Patient Total time spent providing and/or coordinating discharge services: Less than 30 minutes - Discharge Medications Prescriptions: Cefdinir [Omnicef] 300 mg PO DAILY #5 capsule Home Medications: Furosemide [Lasix] 20 mg PO DAILY 01/28/17 [History] Metoprolol [Lopressor] 25 mg PO BID 01/28/17 [History] Potassium Chloride [Klor-Con 10] 10 meq PO DAILY 01/28/17 [History] Warfarin [Coumadin] 2 mg PO MOFR 01/28/17 [History] Warfarin [Coumadin] 3 mg PO SUTUWETHSA 06/02/17 [History] Cefdinir [Omnicef] 300 mg PO DAILY #5 capsule 06/03/17 [Rx] Allergies/Adverse Reactions: 3 Allergy/AdvReac Type Severity Reaction Status Date / Time Sulfa (Sulfonamide Allergy Verified 10/26/14 23:21 Antibiotics) Date of admission: 06/02/17 08:37 Primary care physician: Richard Mariscal Consults: 06/02/17 09:55 PT [Consult to Physical Therapy] [CONS] Routine Comment: Evaluate, develop and implement POC Reason for Consult: Weakness and walker fitting 06/02/17 10:27 Consult to Calciner Operator [CONS] Routine Reason for SW Consult: Home O2 06/02/17 10:54 Consult to Oncology Hematology [CONS] Routine Consulting Provider: Erma Whitt Reason for Consult: Metastatic ovarian cancer - with abdmominal pain Time Notified: 10:55 Call Completed: Yes Discharging clinician: Jose Braun Anticipated date of discharge: 06/03/17 - Constitutional Vitals: Temp Pulse Resp BP Pulse Ox 98.5 F 64 14 125/66 97 06/03/17 10:51 06/03/17 10:51 06/03/17 10:51 06/03/17 10:51 06/03/17 10:51 General appearance: Present: A&O X 3, pleasant, no acute distress, answers questions appropriately - Head Head exam: Present: atraumatic, normocephalic - Eye Eye exam: Present: PERRL, conjuntiva pink, sclera anicteric Pupils: Present: PERRL - Neck Neck exam general surgery: Present: supple, trachea midline. Absent: lymphadenopathy - Respiratory Respiratory exam: Present: CTAB. Absent: accessory muscle use, rales, rhonchi, wheezes - Cardiovascular Cardiovascular exam: Present: RRR, +S1, +S2. Absent: diastolic murmur, gallop, rubs, systolic murmur - GI/Abdominal GI/Abdominal exam: Present: normal bowel sounds, soft, no peritoneal signs. Absent: distended, tenderness - Extremities Exam Extremities exam: Present: warm, radial pulses palpable and symmetrical. Absent : calf tenderness, cyanotic, pedal edema - Neurological Exam Neurological exam: Present: alert, CN II-XII intact, oriented X3, no focal deficits. Absent: pronater drift, facial droop, speech deficit - Skin Skin exam: Present: dry, intact - Patient Status Disposition: Home, Self-Care Condition: Fair Functional capacity at discharge: uses cane/walker Overall status at discharge: patient is progressing back to baseline - Discharge Instructions Follow Up With: Richard Mariscal DO [Primary Care Provider] - 06/11/17 10:00 am - Diet and Activity Activity: resume usual activities as tolerated Diet: advance to your usual diet
[2017-06-04] MEDS ORDERED: *HR* Warfarin 2 MG TABLET PO SCH (18:00)
== END 2017-06-03 13:18 | disposition home or self-care (01) | DRG 375 ==
LOC: EMEROO 05:03 → 3ANU 05:03
PROVIDERS: ADMIT Family Medicine; ATTEND Internal Medicine